=== PATIENT | male | born 1965 | race Caucasian/White ===

== ENCOUNTER 2016-12-10 20:36 | Emergency (ER) | payer MEDICAID ==
[2016-12-11 00:54] LABS: Hematocrit 39 % (42-52); Hemoglobin 13.7 g/dl (14.0-18.0); Mean Corpuscular HGB Conc 35 g/dl (31-36); Mean Corpuscular Hemoglobin 33 pg (27-31); Mean Corpuscular Volume 92 fL (80-94); Mean Platelet Volume 7 um3 (7.4-10.4); Red Blood Count 4.21 10^6/ul (4.0-5.4); Red Cell Distribution Width 13 % (10.5-15); White Blood Count 4.4 10^3/ul (3.5-10.8)
[2016-12-11 01:09] LABS: Albumin 4.1 g/dL (3.2-5.2); BUN/Creatinine Ratio 18.2 (8-20); EGFR African American 135.9 (>60); EGFR Non-African American 105.7 (>60); Globulin 2.7 g/dL (2-4); Magnesium 2.2 mg/dL (1.9-2.7); Potassium 3.4 mmol/L (3.5-5.0); Total Bilirubin 0.9 mg/dL (0.2-1.0); Total Protein 6.8 g/dL (6.4-8.9)
[2016-12-11 01:50] LABS: TSH (Thyroid Stimulating Horm) 0.93 mcIU/mL (0.34-5.60)
[2016-12-11 05:11] LABS: Urine Bilirubin Negative (Negative); Urine Glucose Negative (Negative); Urine Nitrite Negative (Negative)
[2016-12-11 06:21] VITALS: BP 136/79
--- NOTE | 2016-12-11 07:28 | RAD ---
INDICATION: Weakness COMPARISON: None. TECHNIQUE: Single AP portable view of the chest was obtained. FINDINGS: Image quality is compromised due to the relative inferiority of a portable chest x-ray. There is a right upper chest Mediport with the tip terminating at the superior portion of the SVC. The heart and mediastinum exhibit normal size and contour. The lungs are grossly clear. There is no evidence of a large pleural effusion. Visualized bones are normal for the patient's age. IMPRESSION: No radiographic evidence for acute cardiopulmonary abnormality on this portable chest x-ray.
--- NOTE | 2016-12-20 14:48 | ED ---
Sanjana Juarez Rebecca, scribed for Sarah Mcguire MD on 12/10/16 at 2353 . Complex/Multi-Sys Presentation - HPI Summary HPI Summary: Pt is a 51 y/o M who presents to ED c/o abnormal BM. Pt states 'I don't go to the bathroom normal." Reports that sx have been present since he started chemotherapy/radiation in 2014 for colon CA, worse in the last 3 weeks. Sx aggravated and alleviated by nothing. States "it's just not normal" and "I don' t know, just lately I just feel awkward." Additionally c/o urinary urgency. Pt had 35 treatments of radiation, was put on chemotherapy then chose to prematurely cease his treatments. PMHx colon CA. - History Of Current Complaint Chief Complaint: EDGeneral Time Seen by Provider: 12/10/16 22:57 Hx Obtained From: Patient Onset/Duration: Still Present, Worse Since - 3 weeks Severity Currently: None Location: Negative Aggravating Factor(s): Nothing Alleviating Factor(s): Nothing Associated Signs And Symptoms: Positive: Other - Abnormal BM - Allergies/Home Medications Allergies/Adverse Reactions: Allergies Allergy/AdvReac Type Severity Reaction Status Date / Time No Known Allergies Allergy Verified 12/10/16 20:48 PMH/Surg Hx/FS Hx/Imm Hx Endocrine/Hematology History: Denies: Hx Diabetes Cardiovascular History: Reports: Hx Hypertension Denies: Hx Coronary Artery Disease - Cancer History Cancer Type, Location and Year: Colon CA - Dx 2014 Infectious Disease History: No Infectious Disease History: Denies: Traveled Outside the [place] in Last 30 Days - Family History Known Family History: Positive: Diabetes Negative: Hypertension - Social History Alcohol Use: Daily Alcohol Amount: Occasionally binge drinks Substance Use Type: Reports: None Smoking Status (MU): Never Smoked Tobacco Review of Systems Negative: Fever Positive: Other - Abnormal BM Positive: urgency All Other Systems Reviewed And Are Negative: Yes Physical Exam - Summary Physical Exam Summary: General: Well appearing, no pain distress Skin: Warm, Skin Color Reflects Adequate Perfusion, Dry Eyes: EOMI, MARCY ENT: Pharynx normal, TMs normal Neck: Supple, nontender Respiratory: CTA, breath sounds present, no rhonchi, no wheezes, no rales Cardiovascular: RRR, no murmur, no rub, no gallop Abdomen: Soft, nontender, Non-distended, no guarding, no rebound Bowel: Present Musculoskeletal: JUSTUS, No edema Neuro: Sensory/motor intact, A&Ox3, CN intact 2-12 Psych: Affect/mood appropriate Triage Information Reviewed: Yes Vital Signs On Initial Exam: Initial Vitals Temp Pulse Resp BP Pulse Ox 98.0 F 76 14 154/81 99 12/10/16 20:45 12/10/16 20:45 12/10/16 20:45 12/10/16 20:45 12/10/16 20:45 Vital Signs Reviewed: Yes Diagnostics - Vital Signs Vital Signs Temp Pulse Resp BP Pulse Ox 12/10/16 20:45 98.0 F 76 14 154/81 99 - Laboratory Lab Results: Lab Results 12/11/16 12/11/16 12/11/16 Range/Units 00:44 00:44 04:15 WBC 4.4 (3.5-10.8) 10^3/ul RBC 4.21 (4.0-5.4) 10^6/ul Hgb 13.7 L (14.0-18.0) g/dl Hct 39 L (42-52) % MCV 92 (80-94) fL MCH 33 H (27-31) pg MCHC 35 (31-36) g/dl RDW 13 (10.5-15) % Plt Count 163 (150-450) 10^3/ul MPV 7 L (7.4-10.4) um3 Neut % (Auto) 46.1 (38-83) % Lymph % (Auto) 28.4 (25-47) % [place] % (Auto) 11.8 H (1-9) % Eos % (Auto) 12.4 H (0-6) % Baso % (Auto) 1.3 (0-2) % Absolute Neuts (auto) 2.0 (1.5-7.7) 10^3/ul Absolute Lymphs (auto) 1.2 (1.0-4.8) 10^3/ul Absolute Monos (auto) 0.5 (0-0.8) 10^3/ul Absolute Eos (auto) 0.5 (0-0.6) 10^3/ul Absolute Basos (auto) 0.1 (0-0.2) 10^3/ul Absolute Nucleated RBC 0.01 10^3/ul Nucleated RBC % 0.1 Sodium 138 (133-145) mmol/L Potassium 3.4 L (3.5-5.0) mmol/L Chloride 103 (101-111) mmol/L Carbon Dioxide 23 (22-32) mmol/L Anion Gap 12 H (2-11) mmol/L BUN 14 (6-24) mg/dL Creatinine 0.77 (0.67-1.17) mg/dL Est GFR ( Amer) 135.9 (>60) Est GFR (Non-Af Amer) 105.7 (>60) BUN/Creatinine Ratio 18.2 (8-20) Glucose 110 H (70-100) mg/dL Calcium 9.0 (8.6-10.3) mg/dL Magnesium 2.2 (1.9-2.7) mg/dL Total Bilirubin 0.90 (0.2-1.0) mg/dL AST 91 H (13-39) U/L ALT 51 (7-52) U/L Alkaline Phosphatase 101 (34-104) U/L Total Protein 6.8 (6.4-8.9) g/dL Albumin 4.1 (3.2-5.2) g/dL Globulin 2.7 (2-4) g/dL Albumin/Globulin Ratio 1.5 (1-3) TSH 0.93 (0.34-5.60) mcIU/mL Urine Color Yellow Urine Appearance Cloudy Urine pH 5.0 (5-9) Ur Specific [place] 1.021 (1.010-1.030) Urine Protein Negative (Negative) Urine Ketones Trace H (Negative) Urine Blood Negative (Negative) Urine Nitrate Negative (Negative) Urine Bilirubin Negative (Negative) Urine Urobilinogen Negative (Negative) Ur Leukocyte Esterase Negative (Negative) Urine Glucose Negative (Negative) Serum Alcohol 170 H (<10) mg/dL Result Diagrams: 12/11/16 00:44 12/11/16 00:44 Lab Statement: Any lab studies that have been ordered have been reviewed, and results considered in the medical decision making process. - Radiology CXR Xray Interpretation: No Acute Changes Radiology Interpretation Completed By: ED Physician Re-Evaluation - Re-Evaluation First Eval Re-Evaluation Time: 06:01 Comment: Discussed results with the pt who agrees to follow up with his PCP. Complex Multi-Symp Course/Dx Course Of Treatment: during visit pt expressed frustration over how he had been treated during his cancer treatment, it was difficult to discuss a treatment plan with pt for his visit as he seemed unclear of how it was that I could help him. Labs were drawn and were essentially normal Assessment/Plan: Elevated BP noted and advised to f/u with PCP. - Diagnoses Provider Diagnoses: Diarrhea Discharge - Discharge Plan Condition: Stable Disposition: HOME Patient Education Materials: Acute Diarrhea (ED) Referrals: [facility] [place] PHYSICIAN REFERRAL [Outside] - 3 Days Non Staff,Doctor [Primary Care Provider] - The documentation as recorded by the Sanjana pablo Rebecca accurately reflects the service I personally performed and the decisions made by me, Sarah Mcguire MD.
== END 2016-12-11 06:35 | disposition home or self-care (01) ==
LOC: ED 20:36
DX: R19.7 Diarrhea, unspecified (principal); C18.9 Malignant neoplasm of colon, unspecified; Z79.899 Other long term (current) drug therapy; Z92.3 Personal history of irradiation; I10 Essential (primary) hypertension
CPT/HCPCS: 36415; 71010; 80053; 80320; 81003; 83735; 84443; 85025; 99283; G0480